=== PATIENT | male | born 1990 | race Caucasian/White ===

== ENCOUNTER 2023-05-05 17:14 | Inpatient (IN) | payer SELFPAY ==
[~2023-05-05] VITALS: Ht 172.7 cm; Wt 58.1 kg
[2023-05-05 18:08] LABS: HEMATOCRIT 45.4 % (42.0-52.0); HEMOGLOBIN 16.2 g/dl (13.5-17.5); MEAN CORPUSCULAR HEMOGLOBIN 30.9 pg (27.0-33.0); MEAN CORPUSCULAR HGB CONC 35.7 g/dl (32.0-36.5); MEAN CORPUSCULAR VOLUME 86.5 fl (80.0-96.0); PLATELET COUNT, AUTOMATED 284 10^3/uL (150-450); RED BLOOD COUNT 5.25 10^6/uL (4.30-6.10); WHITE BLOOD COUNT 14.1 10^3/uL (4.0-10.0)
[2023-05-05 18:30] LABS: AMPHETAMINES LEVEL URINE NEGATIVE (NEGATIVE)
[2023-05-05 18:31] LABS: BARBITURATES URINE NEGATIVE (NEGATIVE); COCAINE METABOLITE URINE NEGATIVE (NEGATIVE); ETHYL ALCOHOL (ETHANOL) < 0.003 % (0.000-0.010); METHADONE URINE NEGATIVE (NEGATIVE); OPIATES URINE NEGATIVE (NEGATIVE); PHENCYCLIDINE URINE NEGATIVE (NEGATIVE)
[2023-05-05 18:32] LABS: BENZODIAZEPINES URINE NEGATIVE (NEGATIVE)
[2023-05-05 18:33] LABS: ACETAMINOPHEN LEVEL < 2.0 UG/ML (10.0-20.0); SALICYLATE LEVEL < 3.0 MG/DL (<30)
[2023-05-05 18:34] LABS: ALBUMIN 4.9 G/DL (3.2-5.2); ALKALINE PHOSPHATASE 76 U/L (46-116); ALT/SGPT 15 U/L (7.0-40); AST/SGOT 14 U/L (<34); BILIRUBIN,DIRECT 0.3 MG/DL (<0.4); BILIRUBIN,TOTAL 0.7 MG/DL (0.3-1.2); BLOOD UREA NITROGEN 15 MG/DL (9-23); CALCIUM LEVEL 9.4 MG/DL (8.5-10.1); CANNABINOIDS URINE POSITIVE (NEGATIVE); CARBON DIOXIDE LEVEL 27 MMOL/L (20-31); CHLORIDE LEVEL 106 MMOL/L (98-107); CREATININE FOR GFR 0.89 MG/DL (0.70-1.30); GLOMERULAR FILTRATION RATE > 60.0 (>60); GLUCOSE, FASTING 121 MG/DL (60-100); SODIUM LEVEL 141 MMOL/L (136-145); TOTAL PROTEIN 7.8 G/DL (5.7-8.2)
[2023-05-05] MEDS ORDERED: LORazepam 1 MG TAB PO ONE (22:25)
[2023-05-06] MEDS ORDERED: HOME MED LIST COMPLETE! XX SCH (00:20)
[2023-05-06] MEDS ORDERED: ACETAMINOPHEN TAB 650MG DOSE (2X325MG) PO PRN (13:20)
[2023-05-06] MEDS ORDERED: MAALOX 30 ML SUSP *UDC PO PRN (13:20)
[2023-05-06] MEDS ORDERED: traZODone 50 MG TAB PO PRN (13:20)
[2023-05-06] MEDS ORDERED: diphenhydrAMINE 25MG CAP PO PRN (13:20)
[2023-05-06] MEDS ORDERED: MOM 30ML SUSPENSION UDC PO PRN (13:20)
[2023-05-06] MEDS ORDERED: IBUPROFEN 400MG TAB PO PRN (13:20)
[2023-05-06] MEDS: OLANZapine ORAL DISINTEGRATING TAB 5MG PO PRN ×2 (15:11→22:33)
[2023-05-06 21:04] VITALS: BP 153/98; TEMP 98.5; O2SAT 98
[2023-05-07 06:53] VITALS: BP 134/83; TEMP 98.2; O2SAT 95
[2023-05-07] MEDS: OLANZapine 5 MG TAB PO SCH ×2 (10:41→20:19)
[2023-05-07 16:04] VITALS: BP 134/82; TEMP 98.1; O2SAT 98
[2023-05-08 06:38] VITALS: BP 136/85; TEMP 97.7; O2SAT 98
[2023-05-08] MEDS: OLANZapine 5 MG TAB PO SCH ×2 (08:13→20:02)
[2023-05-08 09:11] LABS: CHOLESTEROL RISK RATIO 3.91 (<5); HDL CHOLESTEROL 42.1 MG/DL (>40); LDL CHOLESTEROL 106.1 MG/DL (<100); NON-HDL-C 122.9 MG/DL
[2023-05-08 16:20] VITALS: BP 138/90; TEMP 98.7; O2SAT 98
[2023-05-09 06:12] VITALS: BP 142/88; TEMP 97.4; O2SAT 99
[2023-05-09 07:16] LABS: CHOLESTEROL RISK RATIO 3.6 (<5); HDL CHOLESTEROL 46.9 MG/DL (>40); LDL CHOLESTEROL 105.3 MG/DL (<100); NON-HDL-C 122.1 MG/DL
[2023-05-09] MEDS: OLANZapine 5 MG TAB PO SCH ×2 (08:26→20:01)
[2023-05-09 18:01] VITALS: BP 126/72; TEMP 98.5
[2023-05-10 06:06] VITALS: BP 134/77; TEMP 97.3; O2SAT 98
[2023-05-10] MEDS: OLANZapine 5 MG TAB PO SCH ×2 (08:19→20:10)
[2023-05-10 17:57] VITALS: BP 148/98; TEMP 97.6; O2SAT 100
[2023-05-11 06:58] VITALS: BP 140/88; TEMP 97.4; O2SAT 100
[2023-05-11] MEDS: OLANZapine 5 MG TAB PO SCH (09:23)
[2023-05-11] MEDS ORDERED: OLAN1TAB16 PO (14:10)
== END 2023-05-11 15:43 | disposition home or self-care (01) | DRG 753 ==
LOC: M ED 17:14 → M ED INP 05-06 13:19 → M PSY 05-06 20:50
PROVIDERS: ADMIT Student in an Organized Health Care Education/Training Program; ATTEND Student in an Organized Health Care Education/Training Program
DX: F31.9 Bipolar disorder, unspecified (principal); D72.829 Elevated white blood cell count, unspecified; F12.90 Cannabis use, unspecified, uncomplicated; F17.200 Nicotine dependence, unspecified, uncomplicated; F60.9 Personality disorder, unspecified; F90.9 Attention-deficit hyperactivity disorder, unspecified type

== ENCOUNTER 2023-10-13 12:09 | Inpatient (IN) | payer OTHER, SELFPAY ==
[~2023-10-13] VITALS: Ht 172.7 cm; Wt 60.5 kg
[~2023-10-13 12:09] MED LIST: OLAN1TAB16 PO
[2023-10-13 12:58] LABS: HEMATOCRIT 47.1 % (42.0-52.0); MEAN CORPUSCULAR HEMOGLOBIN 32.4 pg (27.0-33.0); MEAN CORPUSCULAR HGB CONC 36.1 g/dl (32.0-36.5); MEAN CORPUSCULAR VOLUME 89.7 fl (80.0-96.0); PLATELET COUNT, AUTOMATED 268 10^3/uL (150-450); RED BLOOD COUNT 5.25 10^6/uL (4.30-6.10); WHITE BLOOD COUNT 6.3 10^3/uL (4.0-10.0)
[2023-10-13 13:21] LABS: ETHYL ALCOHOL (ETHANOL) < 0.003 % (0.000-0.010)
[2023-10-13 13:23] LABS: ALBUMIN 4.4 G/DL (3.2-5.2); ALKALINE PHOSPHATASE 86 U/L (46-116); ALT/SGPT 11 U/L (7.0-40); AST/SGOT < 8 U/L (<34); BILIRUBIN,DIRECT 0.2 MG/DL (<0.4); BILIRUBIN,TOTAL 0.8 MG/DL (0.3-1.2); BLOOD UREA NITROGEN 8 MG/DL (9-23); CALCIUM LEVEL 9.1 MG/DL (8.5-10.1); CARBON DIOXIDE LEVEL 29 MMOL/L (20-31); CHLORIDE LEVEL 105 MMOL/L (98-107); CREATININE FOR GFR 0.89 MG/DL (0.70-1.30); GLOMERULAR FILTRATION RATE > 60.0 (>60); GLUCOSE, FASTING 126 MG/DL (60-100); POTASSIUM SERUM 4.5 MMOL/L (3.5-5.1); SALICYLATE LEVEL < 3.0 MG/DL (<30); SODIUM LEVEL 139 MMOL/L (136-145); TOTAL PROTEIN 7.2 G/DL (5.7-8.2)
[2023-10-13 13:30] LABS: AMPHETAMINES LEVEL URINE NEGATIVE (NEGATIVE); BARBITURATES URINE NEGATIVE (NEGATIVE); BENZODIAZEPINES URINE NEGATIVE (NEGATIVE)
[2023-10-13 13:31] LABS: CANNABINOIDS URINE NEGATIVE (NEGATIVE); COCAINE METABOLITE URINE NEGATIVE (NEGATIVE); METHADONE URINE NEGATIVE (NEGATIVE); OPIATES URINE NEGATIVE (NEGATIVE); PHENCYCLIDINE URINE NEGATIVE (NEGATIVE)
[2023-10-13] MEDS ORDERED: HOME MED LIST COMPLETE! XX SCH (13:40)
[2023-10-13] MEDS ORDERED: IBUPROFEN 400MG TAB PO PRN (18:10)
[2023-10-13] MEDS ORDERED: MAALOX 30 ML SUSP *UDC PO PRN (18:10)
[2023-10-13] MEDS ORDERED: ACETAMINOPHEN TAB 650MG DOSE (2X325MG) PO PRN (18:10)
[2023-10-13] MEDS ORDERED: MOM 30ML SUSPENSION UDC PO PRN (18:10)
[2023-10-13 19:51] VITALS: BP 118/72; TEMP 97.7; O2SAT 98
[2023-10-14 06:12] VITALS: BP 127/64; TEMP 98.2; O2SAT 98
[2023-10-14] MEDS ORDERED: BENZTROPINE 0.5 MG TAB PO PRN (09:15)
[2023-10-14] MEDS: INFLUENZA QUADRIVALENT PF VACCINE 0.5ML SYRINGE IM.IMMUN ONE (09:35)
[2023-10-14 16:02] VITALS: BP 126/70; TEMP 97.6; O2SAT 99
[2023-10-15 06:26] VITALS: BP 138/71; TEMP 98.6; O2SAT 96
[2023-10-15] MEDS: NICOTINE 21MG/24HR 1 EA TRANSDERMAL TD SCH (14:02)
[2023-10-15 16:06] VITALS: BP 125/79; TEMP 98.1; O2SAT 100
[2023-10-15] MEDS: traZODone 50 MG TAB PO PRN (20:57)
[2023-10-16 06:35] VITALS: BP 131/66; TEMP 98.3; O2SAT 97
[2023-10-16] MEDS: OLANZapine ORAL DISINTEGRATING TAB 5MG PO PRN (14:26)
[2023-10-16 17:53] VITALS: BP 157/92; TEMP 97.4; O2SAT 100
[2023-10-17 06:39] VITALS: BP 123/58; TEMP 98.7; O2SAT 98
[2023-10-17] MEDS: OLANZapine 5 MG TAB PO SCH (10:47)
[2023-10-17 18:27] VITALS: BP 136/82; TEMP 98.1
[2023-10-17] MEDS: diphenhydrAMINE 25MG CAP PO PRN (22:12)
[2023-10-18 06:45] VITALS: BP 124/58; TEMP 97.8; O2SAT 98
[2023-10-18 15:24] VITALS: BP 134/71; TEMP 97.8
[2023-10-19 06:27] VITALS: BP 108/62; TEMP 97.3; O2SAT 95
[2023-10-19] MEDS ORDERED: OLAN1TAB16 PO (08:48)
[2023-10-19] MEDS ORDERED: TRAZ-252 PO (08:48)
== END 2023-10-19 10:10 | disposition home or self-care (01) | DRG 751 ==
LOC: M ED 12:09 → M ED INP 18:07 → M PSY 19:24
PROVIDERS: ADMIT Student in an Organized Health Care Education/Training Program; ATTEND Student in an Organized Health Care Education/Training Program
DX: F29 Unspecified psychosis not due to a substance or known physiological condition (principal); F25.0 Schizoaffective disorder, bipolar type; Z91.148 Patient's other noncompliance with medication regimen for other reason; Z91.119 Patient's noncompliance with dietary regimen due to unspecified reason; F17.210 Nicotine dependence, cigarettes, uncomplicated

== ENCOUNTER 2024-03-23 18:56 | Emergency (ER) | payer MEDICAID, OTHER ==
[~2024-03-23] VITALS: Ht 172.7 cm; Wt 58.5 kg
[~2024-03-23 18:56] MED LIST changes: +TRAZ-252 PO
[2024-03-23 18:57] VITALS: BP 135/85; TEMP 98.2; O2SAT 99
== END 2024-03-23 19:28 | disposition left against medical advice (07) ==
LOC: M ED 18:56
DX: Z53.21 Procedure and treatment not carried out due to patient leaving prior to being seen by health care provider (principal)